=== PATIENT | male | born 1965 | race Hispanic/Latino ===

== ENCOUNTER → 2018-01-10 | Outpatient (CLI) | payer OTHER ==
[~2018-01-10] MED LIST: ASPIR 8181 MG PO; CARVEDILOL3.125 MG PO; FUROSEMIDE40 MG PO; GLIMEPIRIDE2 MG PO; IBUPROFEN200 MG PO; LOSARTAN POTASS25 MG PO; LOVASTATIN20 MG PO; MELOXICAM7.5 MG PO; METFORMIN HCL500 MG PO; POTASSIUM CHLO10 ME1 PO
--- NOTE | 2018-01-10 18:22 | Diagnostic Imaging Report ---
PROCEDURE: Frontal and lateral views of the chest. COMPARISON: Patients [facility], DX, CHEST 2 VIEWS, 01/14/2017, 3:33. INDICATIONS: CHEST PAIN FINDINGS: Lines/tubes: Stable left upper chest single lead cardiac device Lungs: The lungs are well inflated and clear. There is no evidence of pneumonia or pulmonary edema. Pleura: There is no pleural effusion or pneumothorax. Heart and mediastinum: Cardiac silhouette is borderline to mildly enlarged. Pulmonary vasculature is normal. Bones: No acute bony abnormality. IMPRESSION: 1. borderline to mildly enlarged cardiac silhouette, without acute cardiopulmonary disease. Luis Calhoun M.D. Dictated by: Luis Calhoun M.D. on 01/10/2018 at 18:22 Electronically approved by: Luis Calhoun M.D. on 01/10/2018 at 18:22
== END ==
LOC: RAD 17:44
PROVIDERS: ATTEND Internal Medicine
DX: R07.9 Chest pain, unspecified (principal); K29.90 Gastroduodenitis, unspecified, without bleeding
CPT/HCPCS: 71046

== ENCOUNTER 2018-04-17 10:17 | Observation (INO) | payer OTHER ==
[~2018-04-17] VITALS: Ht 167.6 cm; Wt 106.6 kg
--- OUTSIDE RECORDS SUMMARY | 2018-04-17 10:19 | XMS REPORT ---
Author Author [facility] Address Unknown Phone Unavailable Care Team Providers Care Quality Management Nurse Name Role Phone RACHNA SANDERSON Unavailable Unavailable Problems This patient has no known problems. Allergies, Adverse Reactions, Alerts This patient has no known allergies or adverse reactions. Medications This patient has no known medications. Results Test Description Test Time Test Comments Text Results Atomic Results Result Comments CHEST 2 VIEWS [place] [address] Patient Name: SEBASTIÁN BENTLEY MR #: [id number] : 1965 Age/Sex: 52/M Req #: [id number] Adm Physician: Ordered by: RACHNA SANDERSON MD Report #: [id number] Location: [facility] Room/Bed: Procedure: [id number] DX/ CHEST 2 VIEWS Exam Date: 01/10/18 Exam Time: 1811 REPORT STATUS: Signed PROCEDURE: Frontal and lateral views of the chest. COMPARISON: [facility], DX, CHEST 2 VIEWS, 01/14/2017, 3:33. INDICATIONS: CHEST PAIN FINDINGS: Lines/tubes: Stable left upper chest single lead cardiac device Lungs: The lungs are well inflated and clear. There is no evidence of pneumonia or pulmonary edema. Pleura: There is no pleural effusion or pneumothorax. Heart and mediastinum: Cardiac silhouette is borderline to mildly enlarged. Pulmonary vasculature is normal. Bones: No acute bony abnormality. IMPRESSION: 1. borderline to mildly enlarged cardiac silhouette, without acute cardiopulmonary disease. Gt Whaley M.D. Dictated by: Gt Whaley M.D. on 01/10/2018 at 18:22 Electronically approved by: Gt Whaley M.D. on 01/10/2018 at 18:22 Dictated By: GT WHALEY MD 21 Transcribed By: NILA on 01/10/181821 COPY TO: RACHNA SANDERSON MD
[2018-04-17] MEDS ORDERED: ASPIRIN 81 MG CHEW TAB PO ONE ×2 (10:30→12:30)
[2018-04-17] MEDS ORDERED: AMIODARONE HCL200 MG PO (10:59)
[2018-04-17] MEDS ORDERED: WARFARIN SODIUM2 MG PO (10:59)
--- NOTE | 2018-04-17 11:11 | Diagnostic Imaging Report ---
PROCEDURE: A single AP view of the chest. COMPARISON: 01/10/18 INDICATIONS: CHEST PAIN, DIZZINESS FINDINGS: Lines/tubes: Stable single lead left chest wall cardiac device in place. Lungs: The lungs are well inflated and clear. There is no evidence of pneumonia or pulmonary edema. Pleura: There is no pneumothorax. Small right pleural effusion. Heart and mediastinum: The cardiac silhouette is borderline in size. Bones: No acute bony abnormality. IMPRESSION: Small right pleural effusion. Dictated by: Masood Butcher M.D. on 04/17/2018 at 11:13 Electronically approved by: Masood Butcher M.D. on 04/17/2018 at 11:13
[2018-04-17 11:25] LABS: BASOPHILS % 0.5 % (0.0-1.0); EOSINOPHILS # (AUTO) 0.3 (0.0-0.4); EOSINOPHILS % 3.1 % (0.0-6.0); HEMATOCRIT 38.8 % (38.2-49.6); HEMOGLOBIN 13.9 g/dL (14.0-18.0); LYMPHOCYTES # (AUTO) 1.7 (1.0-3.2); LYMPHOCYTES % 20.5 % (18.0-39.1); MEAN CORPUSCULAR HEMOGLOBIN 33.3 pg (28-32); MEAN CORPUSCULAR HGB CONC 35.8 g/dL (31-35); MONOCYTES # (AUTO) 0.5 (0.2-0.8); MONOCYTES % 6.6 % (4.4-11.3); NEUTROPHILS # (AUTO) 5.6 (2.1-6.9); NEUTROPHILS % 68.7 % (38.7-80.0); PLATELET COUNT 152 x10e3/uL (140-360); RED BLOOD COUNT 4.17 x10e6/uL (4.3-5.7); RED CELL DISTRIBUTION WIDTH 13.1 % (11.7-14.4)
[2018-04-17 11:28] LABS: BILIRUBIN,URINE NEGATIVE (NEGATIVE); CLARITY,URINE CLEAR (CLEAR); COLOR,URINE YELLOW (YELLOW); KETONES,URINE NEGATIVE (NEGATIVE); LEUKOCYTE ESTERASE ,URINE NEGATIVE (NEGATIVE); NITRITE,URINE NEGATIVE (NEGATIVE); PROTEIN,URINE DIPSTICK NEGATIVE (NEGATIVE); URINE UROBILINOGEN 0.2 mg/dL (0.2 - 1)
[2018-04-17 11:33] LABS: INR 2.35; PROTHROMBIN TIME 24.2 seconds (11.9-14.5)
[2018-04-17 11:34] LABS: PARTIAL THROMBOPLASTIN TIME 40.6 seconds (23.8-35.5)
[2018-04-17 11:38] LABS: BACTERIA,URINE RARE /HPF; EPITHELIAL CELLS,URINE RARE /LPF; RBC,URINE 0-5 /HPF (0-5); WBC,URINE (MAN) 0-5 /HPF (0-5)
[2018-04-17 11:43] LABS: ALANINE AMINOTRANSFERASE 18 IU/L (0-55); ALBUMIN 4.1 g/dL (3.5-5.0); ALBUMIN/GLOBULIN RATIO 1.1 (0.8-2.0); ALKALINE PHOSPHATASE 67 IU/L (40-150); ANION GAP 14.8 mmol/L (8-16); BLOOD UREA NITROGEN 17 mg/dL (7-26); BUN/CREATININE RATIO 17 (6-25); CALCIUM 9.4 mg/dL (8.4-10.2); CARBON DIOXIDE 22 mmol/L (22-29); CHLORIDE 105 mmol/L (98-107); CREATINE KINASE 102 IU/L (30-200); CREATININE, SERUM 0.99 mg/dL (0.72-1.25); EST GLOMERULAR FILTRATION RATE > 60 ML/MIN (60-); GLUCOSE 120 mg/dL (74-118); POTASSIUM 3.8 mmol/L (3.5-5.1); SODIUM 138 mmol/L (136-145)
[2018-04-17 12:02] LABS: THYROID STIMULATING HORMONE 0.952 uIU/mL (0.350-4.940)
[2018-04-17] MEDS: NITROGLYCERIN 0.4 MG SUBL SL PRN ×2 (12:23→19:22)
[2018-04-17 17:20] VITALS: BP 136/84
[2018-04-17 18:00] VITALS: BP 136/84
[2018-04-17] MEDS ORDERED: DEXTROSE 50% SYRINGE 50 ML IV PRN (18:00)
[2018-04-17 18:20] VITALS: BP 136/84
--- NOTE | 2018-04-17 18:20 | History and Physical ---
PRIMARY CARE PHYSICIAN: Dr. Del Valle CHIEF COMPLAINT: Epigastric discomfort. HISTORY OF PRESENT ILLNESS: This is a 51-year-old man with a history of diabetes mellitus type 2 now developing epigastric discomfort. The pain radiates to his back at times. No shortness of breath. No dizziness. No vision changes. Pain occurs with some exertion and sometimes at rest. PAST MEDICAL HISTORY: Diabetes mellitus type 2, hypertension, hyperlipidemia, , status post AICD placement. Right popliteal bursitis. Right leg edema. Atrial fibrillation. PAST SURGICAL HISTORY: AICD placement. ALLERGIES: PER ELECTRONIC MEDICAL RECORDS. FAMILY AND SOCIAL HISTORY: The patient is . He has children. No alcohol, illicits or cigarettes. MEDICATIONS: Per electronic medical records. REVIEW OF SYSTEMS: Denies any dizziness, fever or chills or sweats. PHYSICAL EXAMINATION VITAL SIGNS: Have been reviewed. GENERAL APPEARANCE: A tired-appearing man resting in the bed. HEENT: Anicteric. Pupils responsive to light. No oral lesions. CARDIOVASCULAR: Normal S1 and S2. LUNGS: Moderate breath sounds, ABDOMEN: Soft and nondistended. He had epigastric discomfort on palpation. EXTREMITIES: There is no edema or calf tenderness. NEUROLOGIC: Alert and oriented x3. Moving all extremities. SKIN: Dry. PSYCHIATRIC: Flat affect. LABS: Reviewed. MEDICATIONS: Reviewed. ASSESSMENT AND PLAN: A 51-year-old man. 1. Epigastric discomfort/chest pain. Will obtain cardiac enzymes to rule out acute coronary syndrome. 2. Shortness of breath with exertion. Will obtain 2D echocardiogram to further evaluate. His scuba diving teacher is Dr. Addison. 3. Diabetes mellitus type 2. Obtain hemoglobin A1c and lipid panel. 4. Hypertension. Will start home medications. 5. Obesity. Caloric restriction needed as outpatient. 6. Hypotension, relative. Will monitor. 7. Right pleural effusion related to congestive heart failure. 8. Congestive heart failure. Obtain 2D echocardiogram to further evaluate. No echocardiogram on file. 9. Normocytic anemia, mild. Will follow. 10. Atrial fibrillation. The patient's INR is therapeutic. Continue amiodarone and warfarin. 11. Systolic congestive heart failure. Continue Lasix 40 mg daily. 12. Hyperlipidemia. Continue statin. 13. Prophylaxis. Will continue with anticoagulation. Will add Pepcid. DISPOSITION: Consult cardiology. Obtain 2D echocardiogram. The patient's scuba diving teacher is Dr. Addison. Job#: [id number] GH
[2018-04-17] MEDS ORDERED: ACETAMINOPHEN 325 MG TAB PO PRN (19:30)
[2018-04-17 20:00] VITALS: BP 106/69
[2018-04-17 20:14] LABS: CHOL/HDL RATIO 10.5 (3.9-4.7); CHOLESTEROL 274 MD/DL (0-199); HDL CHOLESTEROL 26 MG/DL (40-60); TRIGLYCERIDES 1069 MG/DL (0-149)
[2018-04-17 20:24] LABS: CREATINE KINASE MB 0.7 ng/mL (0-5.0)
[2018-04-17] MEDS: INSULIN REGULAR, HUMAN 100 UNIT/1 ML 3ML VIAL SQ SCH (20:49)
[2018-04-17] MEDS ORDERED: SIMVASTATIN 20 MG TAB PO SCH (21:00)
[2018-04-18] VITALS: BP 143/92
[2018-04-18 04:00] VITALS: BP 125/72
[2018-04-18 04:10] VITALS: BP 143/92
[2018-04-18] MEDS: INSULIN REGULAR, HUMAN 100 UNIT/1 ML 3ML VIAL SQ SCH (07:30)
[2018-04-18] MEDS ORDERED: FAMOTIDINE 20 MG TAB PO SCH (07:30)
[2018-04-18] MEDS ORDERED: FENOFIBRATE145 MG PO (07:34)
[2018-04-18] MEDS ORDERED: FAMOTIDINE20 MG PO (07:34)
[2018-04-18 07:39] LABS: CREATINE KINASE 68 IU/L (30-200)
[2018-04-18 07:44] LABS: CHOL/HDL RATIO 11.3 (3.9-4.7); CHOLESTEROL 271 MD/DL (0-199); HDL CHOLESTEROL 24 MG/DL (40-60); TRIGLYCERIDES 1071 MG/DL (0-149)
[2018-04-18 08:01] VITALS: BP 141/84
[2018-04-18 08:10] VITALS: BP 141/84
[2018-04-18] MEDS ORDERED: AMIODARONE HCL 200 MG TAB PO SCH (09:00)
[2018-04-18] MEDS ORDERED: NON-FORMULARY MEDICATION (Lovastatin 20 MG) PO SCH (09:00)
[2018-04-18] MEDS ORDERED: FUROSEMIDE 40 MG TAB PO SCH (09:00)
[2018-04-18] MEDS ORDERED: FENOFIBRATE 145 MG TAB PO SCH (09:00)
[2018-04-18] MEDS ORDERED: IOPAMIDOL 370 MG/ML 200 ML INFUS..BTL INJ ONE (09:15)
[2018-04-18] MEDS ORDERED: SODIUM CHLORIDE 0.9% 50ML 50 ML ONE (09:15)
--- NOTE | 2018-04-18 09:16 | Diagnostic Imaging Report ---
PROCEDURE: CT scan of the chest WITH intravenous contrast, using standard protocol. TECHNIQUE: The chest was scanned utilizing a multidetector helical scanner from the lung apex through the level of the adrenal glands after the IV administration of 100 cc of Isovue 370. Coronal and sagittal multiplanar reformations were obtained. COMPARISON: None. INDICATIONS: CHEST PAIN FINDINGS: Lines/tubes: Left subclavian approach implantable cardiac device body rests in the subcutaneous fat of the left anterior chest wall. The lead terminates in the right ventricle.. Lungs and Airways: Perihilar and lower lobe predominant groundglass opacities and smooth interlobular septal thickening. No consolidation, bronchiectasis, or gross fibrotic change. Pleura: No pleural effusion or pneumothorax. Blunting of the right lateral costophrenic sulcus on the chest radiograph is shown to represent prominent extrapleural fat. Heart and mediastinum: The visualized portions of the thyroid gland are normal. There is no ectasia or aneurysmal dilatation of the thoracic aorta. The pulmonary outflow tract is of normal caliber. The study was not optimized for detection of pulmonary emboli; however, the main, right, and left pulmonary arteries are patent. Cardiomegaly with left ventricular dilatation. No pericardial effusion. No axillary, hilar, or mediastinal lymphadenopathy. Soft tissues: No focal soft tissue abnormalities. Abdomen: Visualized portions of the liver, spleen, pancreas, and adrenals are unremarkable. Punctate left renal calculus is partially visualized. Bones: No osseous obstructive lesions. Multifocal degenerative disc changes of the lower cervical and thoracic spine. IMPRESSION: Cardiomegaly with mild interstitial pulmonary edema. Punctate nonobstructing left upper pole renal calculus. Dictated by: Smith Nichols M.D. on 04/18/2018 at 9:19 Electronically approved by: Smith Nichols M.D. on 04/18/2018 at 9:19
--- NOTE | 2018-04-18 12:03 | Consultation ---
DATE OF CONSULTATION: April 18, 2018 CARDIOLOGY CONSULTATION REASON FOR CONSULTATION: Angina. HPI: This is a 52-year-old male, well known to our practice with history of nonischemic cardiomyopathy with normal heart catheterization in 2016, status post ICD placement, diabetes, hypertension, obesity, LV thrombus, paroxysmal AFib, gout. The patient presented to [facility] ER with complaint of right epigastric pain radiating into his back for 5 days or so. Therefore, cardiology was consulted. The patient was seen in the room in no acute distress. Reports for over a week he has been having a gnawing epigastric pain and burning sensation that radiates up to his throat intermittently for the past week or so. He also reported 1 episode of black stool last week. Since then, he reports no more black stools. Patient denies any chest pain or any exertional angina. EKG shows normal sinus rhythm, no ST changes such as acute event. Troponins are negative times 3 thus far. The patient reports he has been compliant with his heart failure therapy. Denies any orthopnea, PND or lower extremity edema. PAST MEDICAL HISTORY: Nonischemic cardiomyopathy since 2016, diabetes, hypertension, status post ICD in June 2016, anxiety, obesity, gout, LV thrombus, paroxysmal AFib. SURGICAL HISTORY: ICD in June 2016. FAMILY HISTORY: Mother at the age of 44 apparently with heart problems, CHF reported. Father at age of 77, apparently history of heart attack. SOCIAL HISTORY: He is . He is disabled and retired from construction work. Nonsmoker. No alcohol use. ALLERGIES: NO KNOWN ALLERGIES. HOME MEDICATIONS: Include: 1. Warfarin 5 mg once a day. 2. Amiodarone 200 mg Sunday, Sunday and Sunday. 3. Lovastatin 20 mg once a day. 4. Carvedilol 3.125 mg twice a day. 5. Losartan 50 mg once a day. 6. Lasix 40 mg once a day. 7. Metformin 500 mg twice a day. 8. Glimepiride 2 mg daily. REVIEW OF SYSTEMS GENERAL: Denies any weight gain or weight changes, any fever, chills, or night sweats. SKIN: No rashes. No bruises. HEENT: No headache. No nausea or vomiting. No vision changes. No tinnitus, vertigo or earaches. No rhinorrhea, stuffiness, epistaxis. No hoarseness, bleeding gums, swollen neck. CARDIAC: Denies any chest pain. Positive for dyspnea on exertion. Negative orthopnea, PND, lower extremity edema. RESPIRATORY: Positive shortness of breath on exertion. No wheezing or coughing. No hemoptysis. GI: Good appetite. No nausea, vomiting, diarrhea or constipation. Positive for black stool times 1 last week. Positive for epigastric burning sensation radiating up his throat. URINARY: Denies frequency, urgency, polyuria, dysuria, hematuria. VASCULAR: Denies any lower extremity edema or claudication. MUSCULOSKELETAL: Denies any muscle weakness. Generalized joint pains throughout. NEURO: Denies any numbness, tingling, tremors, weakness, paralysis, fainting, blackouts. HEMATOLOGY: Denies any anemia or easy bruising. ENDOCRINE: Denies any heat or cold intolerance or any polyuria, polydipsia, polyphagia. PHYSICAL EXAMINATION VITAL SIGNS: Height 66 inches, weight 235 pounds. Current vital signs are temperature 97.7, pulse 82, blood pressure 141/84, pulse ox 98% on room air. GENERAL: Reliable informant in no acute distress. SKIN: No rashes or bruises noted. HEENT: Normocephalic. Pupils are equal and reactive. Extraocular motor intact. Trachea is midline. Oral mucosa is pink. No JVD. No carotid bruit. HEART: Regular rate and rhythm. PMI in 5th intercostal space. There is a left ICD scar noted on the left chest wall. LUNGS: Bilaterally clear to auscultation. ABDOMEN: Soft, nontender, nondistended. However, the patient is obese. No organomegaly noted. MUSCULOSKELETAL: Good muscle strength throughout. VASCULAR: There are +2 radial pulses bilaterally, +1 DP and PT pulses. No lower extremity edema. NEUROLOGIC: Cranial nerves II through XII seem intact. LABS: Sodium 138, potassium 3.8, chloride 105, BUN 17, creatinine 0.9, glucose 120. A1c is 5.3. BNP is 180. Troponin 0.005, next 0.003, next less than 0.001. TSH is 0.9. Triglycerides 1069, cholesterol 274, HDL 26. INR 2.3. Chest x-ray showing small right pleural effusion. ASSESSMENT 1. Epigastric pain. 2. Gastritis. 3. Nonischemic cardiomyopathy. 4. Paroxysmal atrial fibrillation/left ventricular thrombus. 5. Status post implantable cardioverter-defibrillator. 6. Hypertension. 7. Diabetes. 8. Obesity. PLAN 1. Patient presents with epigastric pain, burning sensation, gnawing that radiates up to his throat. He does, however, complain of some right-sided discomfort with deep breathing. However, cardiac enzymes are very atypical for angina. Cardiac enzymes are negative times 3. EKG is without any ST changes suggestive of an acute event. However, the patient's symptoms do sound like gastritis. He has been started on H2 trini per primary service. Will go ahead and order stool for occult blood. I have discussed with the bedside nurse. 2. Continue the patient's heart failure therapy of Coreg, losartan, Lasix. 3. Regarding his oral anticoagulation therapy, we will go ahead and start it. However, if guaiac is positive, then will need to be stopped. 4. GI workup as per primary service recommendations. Thank you very much for this consult. We will follow the patient's progression. Dictated by: Smith Joy NP Job#: [id number]
[2018-04-18 12:11] VITALS: BP 148/85
[2018-04-18 12:17] LABS: AMYLASE 55 U/L (25-125); LIPASE 26 U/L (8-78)
[2018-04-18] MEDS ORDERED: WARFARIN SOD 2 MG TAB PO SCH (17:00)
[2018-04-18] MEDS ORDERED: CARVEDILOL 3.125 MG TAB PO SCH (17:00)
[2018-04-19] MEDS ORDERED: LOSARTAN POTASSIUM 100 MG TAB PO SCH (09:00)
--- NOTE | 2018-04-19 09:06 | Discharge Summary ---
PRINCIPAL DIAGNOSES 1. Epigastric discomfort. 2. Atypical chest pain. 3. Shortness of breath on exertion. 4. Diabetes mellitus, type 2. 5. Hypertension. 6. Obesity. 7. Hypotension. 8. Right pleural effusion secondary to congestive heart failure. 9. Atrial fibrillation. 10. Systolic congestive heart failure with mild exacerbation. 11. Hyperlipidemia. 12. Hypertriglyceridemia of 1071. SECONDARY DIAGNOSIS: Systolic congestive heart failure. CHIEF COMPLAINT: Shortness of breath on exertion. HISTORY OF PRESENT ILLNESS: This is a 52-year-old man with shortness of breath on exertion. Please refer to the H and P for further details. HOSPITAL COURSE: The patient denied shortness of breath on exertion. Cardiology was consulted. The patient had mild exacerbation of systolic congestive heart failure with pleural effusion. He received diuresis and did well. Cardiac enzymes were negative. He had epigastric discomfort. He will need to see GI service as an outpatient. He had diabetes mellitus, type 2. His hemoglobin A1c was 5.3, and LDL not calculated. He had hypertriglyceridemia. The patient was started on triglyceride-lowering agent. He had normocytic anemia, which was mild. Atrial fibrillation. Heart rate was controlled. His INR was therapeutic. Continue with amiodarone and warfarin. The patient did well and subsequently transitioned out of the hospital. DISCHARGE MEDICATIONS: Per electronic medical record. FOLLOWUP 1. With primary care doctor in 1 week. 2. Follow up with cardiology in 1 to 2 weeks. 3. Follow up with cardiology for echocardiogram results. CONDITION ON DISCHARGE: Stable and improving. DISCHARGE LOCATION: Home. EDWAR DA SILVA MD Job#: [id number]
== END 2018-04-18 14:30 | disposition home or self-care (01) ==
LOC: ER 10:17 → ERHOLD 12:59 → IMCU 16:57
PROVIDERS: ADMIT Internal Medicine; ATTEND Internal Medicine
DX: R10.13 Epigastric pain (principal); I20.1 Angina pectoris with documented spasm; E11.9 Type 2 diabetes mellitus without complications; E78.5 Hyperlipidemia, unspecified; Z95.810 Presence of automatic (implantable) cardiac defibrillator; R06.02 Shortness of breath; E66.9 Obesity, unspecified; I95.9 Hypotension, unspecified; I11.0 Hypertensive heart disease with heart failure; D64.9 Anemia, unspecified; Z79.01 Long term (current) use of anticoagulants; I48.0 Paroxysmal atrial fibrillation; K29.70 Gastritis, unspecified, without bleeding; E78.1 Pure hyperglyceridemia; I50.23 Acute on chronic systolic (congestive) heart failure
CPT/HCPCS: 36415 ×2; 71045; 71260; 80053; 80061 ×2; 81001; 82150; 82270; 82550 ×2; 82553 ×2; 82948; 83036; 83690; 83880; 84443; 84484 ×2; 85025; 85610; 85730; 87086; 93005; 93306; 99284; G0378 ×2; Q9967

== ENCOUNTER 2022-09-05 04:37 | Emergency (ER) | payer OTHER ==
[~2022-09-05] VITALS: Ht 167.6 cm; Wt 105.7 kg
[~2022-09-05 04:37] MED LIST changes: +AMIODARONE HCL200 MG PO; +FAMOTIDINE20 MG PO; +FENOFIBRATE145 MG PO; +WARFARIN SODIUM2 MG PO
[2022-09-05] MEDS ORDERED: TRAMADOL HCL 50 MG TAB PO STA (04:59)
[2022-09-05] MEDS ORDERED: TRAMADOL HCL 50 MG TAB ONE (05:14)
[2022-09-05] MEDS ORDERED: ULTRAM 50MG50 MG PO (06:22)
== END 2022-09-05 06:25 | disposition home or self-care (01) ==
LOC: ER 04:46
DX: M25.562 Pain in left knee (principal); M25.462 Effusion, left knee; R50.9 Fever, unspecified; I10 Essential (primary) hypertension; E11.9 Type 2 diabetes mellitus without complications; E78.5 Hyperlipidemia, unspecified; I48.91 Unspecified atrial fibrillation; M10.9 Gout, unspecified; Z95.810 Presence of automatic (implantable) cardiac defibrillator
CPT/HCPCS: 99283